=== PATIENT | female | born 1955 | race Caucasian/White ===

== ENCOUNTER 2017-12-02 10:44 | Emergency (ER) | payer BC ==
[~2017-12-02] VITALS: Ht 180.3 cm; Wt 54.4 kg
[2017-12-02 13:44] VITALS: BP 143/76
== END 2017-12-02 13:47 | disposition home or self-care (01) ==
LOC: ER 10:44
DX: E04.9 Nontoxic goiter, unspecified (principal)

== ENCOUNTER 2022-03-24 11:02 | Emergency (ER) | payer BC, MEDICARE ==
[~2022-03-24] VITALS: Ht 162.6 cm; Wt 50.0 kg
[2022-03-24 11:44] VITALS: BP 121/86
[2022-03-24] MEDS ORDERED: HYDROcodone-ACET 5/325MG TAB PO ONE (12:45)
[2022-03-24] MEDS ORDERED: ONDANSETRON ODT 4 MG TAB PO ONE (12:45)
[2022-03-24] MEDS ORDERED: ACE3T PO (13:22)
== END 2022-03-24 14:38 | disposition home or self-care (01) ==
LOC: ER 11:02
DX: S82.52XA Displaced fracture of medial malleolus of left tibia, initial encounter for closed fracture (principal); S82.832A Other fracture of upper and lower end of left fibula, initial encounter for closed fracture; E03.9 Hypothyroidism, unspecified; Z90.89 Acquired absence of other organs; Z79.899 Other long term (current) drug therapy; W01.0XXA Fall on same level from slipping, tripping and stumbling without subsequent striking against object, initial encounter; Y93.89 Activity, other specified; Y92.89 Other specified places as the place of occurrence of the external cause; Y99.8 Other external cause status
CPT/HCPCS: 29515; 70450; 73610; 99284; Q0162